=== PATIENT | male | born 1980 | race Caucasian/White ===

== ENCOUNTER 2017-04-29 14:41 | Emergency (ER) | payer MEDICAID ==
[~2017-04-29] VITALS: Ht 167.6 cm; Wt 92.1 kg
[2017-04-29 14:59] VITALS: Ht 167.6 cm; Wt 92.1 kg
[2017-04-29 16:34] VITALS: BP 122/74
== END 2017-04-29 16:34 | disposition home or self-care (01) ==
LOC: ED 14:41
DX: S39.012A Strain of muscle, fascia and tendon of lower back, initial encounter (principal); W18.30XA Fall on same level, unspecified, initial encounter; Y93.89 Activity, other specified; Y99.8 Other external cause status; Y92.89 Other specified places as the place of occurrence of the external cause; R21 Rash and other nonspecific skin eruption
CPT/HCPCS: J7512

== ENCOUNTER 2017-07-14 15:17 | Emergency (ER) | payer MEDICAID ==
[~2017-07-14] VITALS: Ht 167.6 cm; Wt 92.1 kg
[2017-07-14 15:23] VITALS: BP 117/81; Ht 167.6 cm; Wt 92.1 kg
== END 2017-07-14 16:19 | disposition home or self-care (01) ==
LOC: ED 15:17
DX: R21 Rash and other nonspecific skin eruption (principal); G89.29 Other chronic pain; M25.511 Pain in right shoulder
CPT/HCPCS: J7512; Q0163

== ENCOUNTER 2018-07-03 22:23 | Emergency (ER) | payer MEDICAID ==
[~2018-07-03] VITALS: Ht 167.6 cm; Wt 92.1 kg
[2018-07-03 22:28] VITALS: Ht 167.6 cm; Wt 92.1 kg
[2018-07-04 00:37] VITALS: BP 118/80
== END 2018-07-04 00:37 | disposition home or self-care (01) ==
LOC: ED 22:23
DX: J06.9 Acute upper respiratory infection, unspecified (principal); R07.89 Other chest pain; M79.10 Myalgia, unspecified site